=== PATIENT | male | born 1990 | race Caucasian/White ===

== ENCOUNTER 2022-03-11 15:19 | Emergency (ER) | payer SELFPAY ==
[~2022-03-11 15:19] MED LIST: AMOXICILLIN500 M1 PO; IBUPROFEN800 MG PO; NORCO 5-325 TA1 EACH PO
[2022-03-11 15:51] LABS: HEMOGLOBIN 16.4 gm/dl (14.0-17.5); RED BLOOD COUNT 5.4 M/UL (4.20-5.50); WHITE BLOOD COUNT 9.2 K/UL (4.5-11.0)
[2022-03-11 16:28] LABS: BUN/CREATININE RATIO 13 (0-10)
[2022-03-11] MEDS ORDERED: PROTONIX 40 MG40 M1 PO (19:15)
== END 2022-03-11 19:28 | disposition home or self-care (01) ==
LOC: ER1 15:19
DX: K21.9 Gastro-esophageal reflux disease without esophagitis (principal); F41.9 Anxiety disorder, unspecified; Z20.822 Contact with and (suspected) exposure to COVID-19
CPT/HCPCS: 0240U; 71045; 80053; 82550; 82553; 83605; 84484; 85025; 93005; 96374; 96375; 99285; C9113; J2405